=== PATIENT | male | born 1950 ===

== ENCOUNTER 2024-10-13 19:30 | Emergency (ER) | payer MEDICARE ==
[2024-10-13] MEDS: Lidocaine 2% HCl 11 ML Jelly Filled Syringe TOP ONE (19:45)
[2024-10-13 20:06] LABS: APPEARANCE,URINE CLOUDY; BILIRUBIN,URINE NEGATIVE (NEGATIVE); COLOR,URINE YELLOW; GLUCOSE,URINE NEGATIVE (NEGATIVE); KETONES,URINE NEGATIVE (NEGATIVE); LEUKOCYTE ESTERASE,URINE SMALL (NEGATIVE); NITRITE,URINE NEGATIVE (NEGATIVE); OCCULT BLOOD,URINE MODERATE (NEGATIVE); PROTEIN,URINE 100 mg/dL (NEGATIVE); UROBILINOGEN,URINE 0.2 E.U./dL (0.2-1.0)
[2024-10-13 20:14] LABS: AMORPHOUS SEDIMENT,URINE NOT SEEN /HPF (0/HPF); BACTERIA,URINE RARE /HPF (NONE TO FEW); EPITHELIAL CELLS,URINE FEW /LPF; MUCUS,URINE NOT SEEN /LPF (NEGATIVE); WBC,URINE 75-100 /HPF
== END 2024-10-13 20:05 | disposition home or self-care (01) ==
LOC: LL.ED 19:30
DX: R33.9 Retention of urine, unspecified (principal)
CPT/HCPCS: 51702; 81001; 99283; 99284; A9270-GY